=== PATIENT | male | born 1990 | race Caucasian/White ===

== ENCOUNTER 2021-12-23 11:03 | Emergency (ER) | payer BC ==
[2021-12-23 11:23] VITALS: BP 173/57; PULSE 61; RESP 20; TEMP 97.9; BMI 23.5
[2021-12-23] MEDS ORDERED: levETIRAcetam 500 MG/5 ML INJECTION VIAL IVPB ONE ×2 (12:00→12:42)
[2021-12-23 13:06] LABS: HEMATOCRIT 44.1 % (35.4-49); HEMOGLOBIN 14.7 GM/dL (11.7-16.9); MCHC 33.4 g/dl (32.0-35.9); MEAN PLT VOLUME 6.8 fl (7.5-11.1); PLATELET COUNT 322 10^3/uL (134-434); RBC 4.74 M/mm3 (4.00-5.60); RDW 12.8 % (11.9-15.9); WHITE BLOOD COUNT 11.2 K/mm3 (4.0-10.0)
[2021-12-23 13:28] LABS: BLOOD UREA NITROGEN 22.7 mg/dL (7-18)
[2021-12-23 13:32] LABS: BILIRUBIN,TOTAL 1.3 mg/dL (0.2-1)
[2021-12-23 14:43] LABS: ANISOCYTOSIS 0; MACROCYTOSIS 0
== END 2021-12-23 15:50 | disposition home or self-care (01) ==
LOC: JER 11:03
PROC: 3E033GC Introduction of Other Therapeutic Substance into Peripheral Vein, Percutaneous Approach (ICD-10-PCS; principal; 2021-12-23)
DX: R56.9 Unspecified convulsions (principal)
CPT/HCPCS: 36415; 71046-TC-FY; 80053; 80177; 85025; 99284-25